=== PATIENT | male | born 1990 | race Caucasian/White ===

== ENCOUNTER 2022-06-21 12:17 | Emergency (ER) | payer OTHER ==
[~2022-06-21] VITALS: Ht 175.3 cm; Wt 99.8 kg
--- NOTE | 2022-06-21 12:30 | NUR ---
PT IS IN ROOM #2B. DR HAINES EVALUATED THE PT.
[2022-06-21 13:04] LABS: *BILIRUBIN,URIN NEGATIVE (NEGATIVE); *BLOOD, URINE NEGATIVE (NEGATIVE); *CLARITY,URINE CLEAR (CLEAR); *COLOR,URINE YELLOW (YELLOW); *KETONES,URINE NEGATIVE (NEGATIVE); *UROBILINOGEN,URINE 0.2 E.U./dl (NORMAL); LEUKOCYTE ESTERASE ,URINE NEGATIVE (NEGATIVE); NITRITE, URINE NEGATIVE (NEGATIVE); UGLUCOSE NEGATIVE (NEGATIVE)
[2022-06-21 13:06] LABS: HEMATOCRIT 44.7 % (36.7-47.1); MEAN CORPUSCULAR VOLUME 83.7 fL (73.0-96.2); PLATELET COUNT (AUTO) 226 K/uL (152-348)
[2022-06-21 13:13] LABS: POTASSIUM 3.7 mmol/L (3.5-5.1)
[2022-06-21 13:19] LABS: BILIRUBIN,DIRECT 0.1 mg/dL (0.0-0.2); BILIRUBIN,TOTAL 0.3 mg/dL (0.2-1.0); TOTAL PROTEIN, SERUM 8.1 g/dL (6.4-8.2)
[2022-06-21] MEDS ORDERED: IV NORMAL SALINE 250 ML IV ONE (13:27)
[2022-06-21] MEDS ORDERED: IOHEXOL 300MG/ML 100 ML INFUS..BTL ONE (13:27)
[2022-06-21] MEDS ORDERED: SWABABLE VALVE TRANSFER SET EA MC ONE (13:27)
--- NOTE | 2022-06-21 15:37 | NUR ---
PT WAS D/C'd TO HOME. D/C INSTRUCTIONS GIVEN TO THE PT BY DR REGALADO.
[2022-06-21 15:39] VITALS: BP 136/82
== END 2022-06-21 15:41 | disposition home or self-care (01) ==
LOC: ER 12:17
DX: R10.32 Left lower quadrant pain (principal)
CPT/HCPCS: 99285; 74177; 80076; 80048; 81003; 83690; 85025; 36415; Q9967; A4663

== ENCOUNTER 2022-08-03 17:47 | Emergency (ER) | payer OTHER ==
[~2022-08-03] VITALS: Ht 175.3 cm; Wt 99.8 kg
--- NOTE | 2022-08-03 18:06 | NUR ---
Pt arrived to the ED w/ c/o RU chest pain radiating to the back, 4-5/10, sharp pain upon inhalation. Pt fell off and hit the concrete 10am today. Seen by Dr. Cornell for MSE.
[2022-08-03] MEDS ORDERED: HYDROCODONE/APAP 5-325MG TABLET PO ONE (18:15)
[2022-08-03] MEDS ORDERED: HYDROCODONE/APAP 5-325MG TABLET ONE (18:30)
[2022-08-03] MEDS ORDERED: IBUP-1955 PO (19:24)
[2022-08-03] MEDS ORDERED: HYDR-4209 PO ×2 (19:24→19:30)
--- NOTE | 2022-08-03 19:37 | NUR ---
Endorsed to Whit REGALADO.
[2022-08-03 19:43] VITALS: BP 112/75
--- NOTE | 2022-08-03 19:43 | NUR ---
Patient discharged to home in stable condition. Written and verbal after care instructions given. Patient verbalizes understanding of instructions. Stressed follow up or return to ER for worsening s/s.
== END 2022-08-03 19:44 | disposition home or self-care (01) ==
LOC: ER 17:47
DX: S22.31XA Fracture of one rib, right side, initial encounter for closed fracture (principal); W17.2XXA Fall into hole, initial encounter; Y92.89 Other specified places as the place of occurrence of the external cause; Y99.0 Civilian activity done for income or pay
CPT/HCPCS: 71045; A4663